=== PATIENT | male | born 1995 | race Caucasian/White ===

== ENCOUNTER 2024-12-13 18:51 | Emergency (ER) | payer MEDICAID ==
[~2024-12-13] VITALS: Ht 167.6 cm; Wt 65.0 kg
[2024-12-13 19:06] VITALS: TEMP 36.7; O2SAT 99
[2024-12-13] MEDS: LORAZEPAM 1MG TABLET PO ONE (21:31)
[2024-12-13 23:40] VITALS: BP 127/85; PULSE 75; RESP 12; O2SAT 97
== END 2024-12-13 23:45 | disposition home or self-care (01) ==
LOC: ER 19:10
DX: F41.9 Anxiety disorder, unspecified (principal)
CPT/HCPCS: 99283